=== PATIENT | male | born 1970 | race Caucasian/White ===

== ENCOUNTER 2025-02-09 14:04 | Emergency (ER) | payer BC ==
[~2025-02-09] VITALS: Ht 182.9 cm; Wt 113.0 kg
[2025-02-09 14:12] VITALS: O2SAT 100
[2025-02-09 15:07] LABS: BASOPHILS % 0.6 % (0.0-2.0); CHLORIDE 100 mEq/L (98-107); HEMATOCRIT. 41.8 % (42.0-52.0); HEMOGLOBIN. 13.6 g/dL (14.0-18.0); LYMPHOCYTES % 16.9 % (20.0-50.0); MEAN CORPUSCULAR HEMOGLOBIN 27.6 pg (28.0-32.0); MEAN CORPUSCULAR HGB CONC 32.6 g/dL (31.0-37.0); MEAN CORPUSCULAR VOLUME 84.6 fL (80.0-94.0); MEAN PLATELET VOLUME 8.8 fl (7.4-10.4); NEUTROPHILS % 71.5 % (40.0-76.0); PLATELET 228 x1000/uL (130-400); RED BLOOD CELL COUNT 4.94 mill/uL (4.7-6.1); RED CELL DISTRIBUTION WIDTH 14.1 % (11.6-14.6); SODIUM 137 mEq/L (136-145)
[2025-02-09 15:08] LABS: CALCIUM 9.9 mg/dL (8.7-10.4); CARBON DIOXIDE 24 mEq/L (21-32)
[2025-02-09 15:13] LABS: CREATININE 2.9 mg/dL (0.6-1.3); GLUCOSE 133 mg/dL (70-105); UREA NITROGEN BLOOD 34 mg/dL (9-23)
[2025-02-09 15:15] LABS: TROPONIN I HIGH SENSITIVITY 9 ng/L (3.0-53)
[2025-02-09 16:11] LABS: D-DIMER 1.09 mg/L FEU (<0.50); INR 1.1; PROTHROMBIN TIME 11.3 sec (9.6-11.0)
[2025-02-09 17:15] VITALS: BP 109/66; PULSE 83; RESP 14; TEMP 36.7; O2SAT 100
== END 2025-02-09 17:25 | disposition home or self-care (01) ==
LOC: ER 14:04 → EDBEDREQ 15:04 → ER 17:25
DX: R55 Syncope and collapse (principal); S62.91XA Unspecified fracture of right hand, initial encounter for closed fracture; E11.9 Type 2 diabetes mellitus without complications; E78.00 Pure hypercholesterolemia, unspecified; I10 Essential (primary) hypertension; W45.8XXA Other foreign body or object entering through skin, initial encounter; Y93.89 Activity, other specified; Y92.89 Other specified places as the place of occurrence of the external cause; Y99.8 Other external cause status
CPT/HCPCS: 29125; 36415; 71045; 73120; 80048; 83880; 84484; 85025; 85379; 93005; 99285